=== PATIENT | female | born 1965 | race Caucasian/White ===

== ENCOUNTER 2016-12-21 11:23 | Day surgery (SDC) | payer BC ==
[~2016-12-21] VITALS: Ht 152.4 cm; Wt 62.1 kg
[~2016-12-21 11:23] MED LIST: METF-382 PO
[2016-12-21 12:41] VITALS: Ht 152.4 cm; Wt 62.1 kg
[2016-12-21] MEDS ORDERED: PROPOFOL 20 ML ONE (13:28)
[2016-12-21] MEDS ORDERED: LIDOCAINE 2% (SDV) 5 ML INJ ONE (13:28)
[2016-12-21] MEDS ORDERED: MIDAZOLAM 1 MG/ML 2 ML INJ ONE (13:28)
[2016-12-21 13:29] VITALS: BP 116/64; PULSE 69; RESP 16
[2016-12-21 14:41] VITALS: BP 121/68; RESP 20
--- NOTE | 2016-12-21 15:17 | GILP ---
DATE OF PROCEDURE: 12/21/2016 PROCEDURE PERFORMED: Colonoscopy to cecum. BRIEF HISTORY AND INDICATIONS: The patient here for colorectal cancer screening. PREMEDICATION: Monitored anesthesia care by anesthesiologist. SURGEON: Rafal Smart MD. INSTRUMENT USED: Olympus colonoscope. PREPARATION: Was adequate. TECHNIQUE: After informed consent, with the patient/relatives understanding the procedure, its indic ations potential risks and complications, including but not limited to: allergic reaction, bleeding, perforation, infection, missed lesions and after all pertinent questions were answered to the patie nt's satisfaction, the patient/relatives signed the witnessed informed consent. Following this, premedication was administered slowly IV push by under careful cardiovascular and re spiratory monitoring with pulse oximetry, automatic blood pressure and school lunch monitor. Once the sedativ e effect was achieved, the patient was placed in the left lateral decubitus position, digital rectal examination was performed. The colonoscope was then introduced and advanced under visual control th roughout all segments of the colon including: the rectum, sigmoid, descending colon, splenic flexure , transverse colon, hepatic flexure, ascending colon and finally reaching the cecum which was clearl y identified by transillumination, finger indentation and the ileocecal valve. Careful examination o f the mucosa of the lower gastrointestinal tract both on insertion as well as withdrawal of the inst rument disclosed the following findings: FINDINGS: Rectal: Small external hemorrhoids are noted. Colonic Mucosa: The colonic mucosa unremarkable throughout. The ileocecal valve was clearly identi fied and appears unremarkable. The instrument was withdrawn reexamining the mucosa in detail. No a dditional abnormalities are noted with exception of moderate sized internal hemorrhoids. IMPRESSION: Moderate sized internal and external hemorrhoids. Otherwise, normal colonoscopy to cec um. PLAN: The patient will follow up as an outpatient. Annual Hemoccult stool testing is recommended a nd screening colonoscopy in 10 years is recommended, high fiber diet is also recommended. Dictated By: RAFAL SMART MS/BERKLEY Conf#: [id number] DID#: [id number]
== END 2016-12-21 15:40 | disposition home or self-care (01) ==
LOC: GIL 11:23
PROVIDERS: ATTEND Internal Medicine Gastroenterology
DX: Z12.11 Encounter for screening for malignant neoplasm of colon (principal); F17.200 Nicotine dependence, unspecified, uncomplicated
CPT/HCPCS: 45378; 82962; J2250; Z7610